=== PATIENT | male | born 1955 | race Caucasian/White ===

== ENCOUNTER 2016-07-17 17:05 | Observation (INO) | payer BC ==
[~2016-07-17] VITALS: Ht 180.3 cm; Wt 99.9 kg
[~2016-07-17 17:05] MED LIST: ADVIN25/60 INH; ASPEC81 PO; ATOR-24 PO; LSN20 PO; NRV/5 PO; NTRSLP4 SL; PLV75 PO; TPRSR25 PO
[2016-07-17] MEDS ORDERED: NITROGLYCERIN 0.4 MG SL PER TAB CHARGE SL PRN ×2 (17:30→19:15)
[2016-07-17 17:40] LABS: BASO % 0.2 %; BASO ABS # 0.01 K/uL (0-0.2); COMPLETE YES; EOS % 2.8 %; HEMATOCRIT 45.8 % (42-52); IG% 0.2 %; LYMPH % 21.5 %; LYMPH ABS # 1.39 K/uL (1.2-3.4); MEAN CELL VOLUME 87.6 fL (80-100); MEAN CORPUSCULAR HEMOGLOBIN 30.4 pg (25-34); MEAN CORPUSCULAR HGB CONC 34.7 g/dl (32-36); MEAN PLATELET VOLUME 10.9 fL (7.4-10.4); NEUT % 64.3 %; PLATELET COUNT 133 K/uL (130-400); RED BLOOD COUNT 5.23 M/uL (4.7-6.1); WHITE BLOOD COUNT 6.48 K/uL (4.8-10.8)
[2016-07-17 17:57] LABS: PARTIAL THROMBOPLASTIN RATIO 1.1; PROTHROMBIN TIME (PATIENT) 10.7 SECONDS (9.0-12.0)
--- NOTE | 2016-07-17 18:02 | DIAGNOSTIC IMAGING REPORT ---
CHEST ONE VIEW PORTABLE CLINICAL HISTORY: CHEST PAIN dyspnea COMPARISON STUDY: 05/09/2015 FINDINGS: The bones soft tissues and hemidiaphragms are normal. The cardiomediastinal silhouette is normal. The lungs are clear. The pulmonary vasculature is normal. IMPRESSION: Negative chest. Electronically signed by: Jone Biggs M.D. 07/17/2016 6:00 PM Dictated Date/Time: 07/17/2016 6:00 PM
[2016-07-17 18:15] LABS: ALT/SGPT 50 U/L (12-78); AST/SGOT 19 U/L (15-37); BLOOD UREA NITROGEN 14 mg/dl (7-18); BUN/CREATININE RATIO 13.1 (10-20); CALCIUM 8.4 mg/dl (8.5-10.1); CARBON DIOXIDE 28 mmol/L (21-32); CHLORIDE 108 mmol/L (98-107); GLUCOSE 93 mg/dl (70-99); POTASSIUM 4.2 mmol/L (3.5-5.1); SODIUM 140 mmol/L (136-145)
[2016-07-17 18:20] LABS: ALKALINE PHOSPHATASE 77 U/L (45-117)
[2016-07-17] MEDS ORDERED: ASPIRIN 81 MG CHEW PO STA ×2 (19:03)
[2016-07-17] MEDS ORDERED: POLYETHYLENE (MIRALAX) 17 GM PACK PO PRN (19:15)
[2016-07-17] MEDS ORDERED: ACETAMINOPHEN 325 MG TAB PO PRN (19:15)
[2016-07-17] MEDS ORDERED: ONDANSETRON INJ 2 MG/ML 2 ML VIAL IV PRN (19:15)
[2016-07-17] MEDS ORDERED: IV FLUIDS COMPLETED PRN (19:30)
--- NOTE | 2016-07-17 19:39 | EMERGENCY ROOM VISIT NOTE ---
History First contact with patient: 17:18 Chief Complaint: CHEST PAIN Stated Complaint: BACK PAIN,DISCOMFORT Nursing Triage Summary: Chest pain- under his shoulder tres is the same pain he had in May 2015 when he had a heart attack. Pain started today about noon. Was sitting in his office. History of Present Illness The patient is a 60 year old male who presents to the Emergency Room with complaints of left shoulder blade pain that started around noontime today at work. The patient is concerned because he reports that this pain is similar to when he had a heart attack last April. The patient underwent a single stent placement at that time. The patient is on aspirin, Plavix, Lipitor, lisinopril and metoprolol. He also has a prescription for nitroglycerin at home, but has not had to use it since his stent placement. He also did not take it today because he did not know how he would react with driving. The patient was sitting in his office when the pain developed. He denies any other recent strenuous activities, shortness of breath, cough or other upper respiratory symptoms. The pain is not worsened with deep breathing or movement of the neck or shoulder. He currently rates the pain a 3 out of 10. He denies any diaphoresis or nausea. Review of Systems HEENT: Denies dizziness, visual problems, hearing loss, tinnitus. Denies difficulty swallowing or oral lesions. PULMONARY: Denies cough, shortness of breath, sputum production or hemoptysis. CARDIOVASCULAR: Denies palpitations, dyspnea on exertion, orthopnea or peripheral edema. GASTROINTESTINAL: Denies diarrhea, constipation, nausea, vomiting, or abdominal pain. GENITOURINARY: Denies dysuria, frequency, urgency or nocturia. NEUROLOGIC: Denies history of epilepsy, CVA, TIA or chronic headaches. MUSCULOSKELETAL: Denies history of joint tenderness/swelling. SKIN: Denies rashes or lesions. PSYCHIATRIC: Denies history of depression or mental illness. ENDOCRINE: Denies history of diabetes or thyroid disorders. Past Medical/Surgical History Medical Problems: (1) Acute inferior myocardial infarction (2) Asthma (3) Chest pain, rule out acute myocardial infarction (4) Coronary artery disease (5) Dyslipidemia (6) Hypertension Family History Heart disease Social History Smoking Status: Never Smoker Alcohol Use: occasionally Marital Status: Housing Status: lives with family Occupation Status: employed Current/Historical Medications Scheduled Amlodipine Besylate (Amlodipine Besylate), 5 MG PO DAILY Aspirin (Aspirin EC Low Dose), 81 MG PO QAM Atorvastatin (Lipitor), 40 MG PO DAILY Clopidogrel Bisulfate (Clopidogrel), 75 MG PO QAM Fluticasone Prop/Salmeterol (Advair Diskus 250/50 60 Dose), 1 INHA INH DAILY Lisinopril (Lisinopril), 20 MG PO DAILY Metoprolol Succinate (Metoprolol Succinate ER), 25 MG PO QAM Scheduled PRN Nitroglycerin (Nitrostat), 0.4 MG SL UD PRN for Chest Pain Allergies Coded Allergies: Cat Dander (Unverified Allergy, Unknown, UNKNOWN, 07/17/16) Maple Tree (Unverified Allergy, Unknown, UNKNOWN, 07/17/16) Physical Exam Vital Signs Date Time Temp Pulse Resp B/P Pulse Ox O2 Delivery O2 Flow Rate FiO2 07/17/16 17:35 57 07/17/16 17:22 96 Room Air 07/17/16 17:07 36.7 58 20 167/97 100 Room Air Physical Exam CONSTITUTIONAL: Healthy and well nourished. Alert and oriented X 3 with positive affect. Patient does not appear in any acute distress on my exam. HEENT: Normocephalic, atraumatic. Pupils equal, round and reactive. Ears and nares are clear. No scleral icterus or conjunctival injection/pallor. NECK: Full active range of motion without discomfort. No JVD or carotid bruits. RESPIRATORY: Clear to auscultation bilaterally with no wheezing, crackles, rhonchi or stridor. Deep breathing does not cause any discomfort. CARDIOVASCULAR: Regular rate and rhythm with no murmurs, rubs or gallops. GASTROINTESTINAL: Bowel sounds present in all quadrants. Soft and nontender to palpation. Negative CVA tenderness. No hepatosplenomegaly. MUSCULOSKELETAL: Full range of motion of all joints without discomfort. The patient has no tenderness to palpation through the left scapular region, thoracolumbar spine or ribs. Scapular rotation does not cause any discomfort. INTEGUMENTARY: No rash or other significant dermatologic conditions noted. HEMATOLOGIC: No ecchymosis or petechiae. NEUROLOGIC: No focal neurologic deficits noted. Medical Decision & Procedures ER Provider Diagnostic Interpretation: My interpretation of an initial ECG shows a sinus bradycardia of [address] elevation or other conduction abnormalities. My interpretation of a portable chest x-ray does not show any consolidations, pneumothorax or cardiac prominence. Radiologist report is as follows: CHEST ONE VIEW PORTABLE CLINICAL HISTORY: CHEST PAIN dyspnea COMPARISON STUDY: 05/09/2015 FINDINGS: The bones soft tissues and hemidiaphragms are normal. The cardiomediastinal silhouette is normal. The lungs are clear. The pulmonary vasculature is normal. IMPRESSION: Negative chest. Laboratory Results 07/17/16 17:20 Red Blood Count 5.23, Mean Corpuscular Volume 87.6, Mean Corpuscular Hemoglobin 30.4, Mean Corpuscular Hemoglobin Concent 34.7, Mean Platelet Volume 10.9, Neutrophils (%) (Auto) 64.3, Lymphocytes (%) (Auto) 21.5, Monocytes (%) (Auto) 11.0, Eosinophils (%) (Auto) 2.8, Basophils (%) (Auto) 0.2, Neutrophils # (Auto ) 4.18, Lymphocytes # (Auto) 1.39, Monocytes # (Auto) 0.71, Eosinophils # (Auto ) 0.18, Basophils # (Auto) 0.01 07/17/16 17:20 Test 07/17/16 17:20 White Blood Count 6.48 K/uL (4.8-10.8) Red Blood Count 5.23 M/uL (4.7-6.1) Hemoglobin 15.9 g/dL (14.0-18.0) Hematocrit 45.8 % (42-52) Mean Corpuscular Volume 87.6 fL (80-100) Mean Corpuscular Hemoglobin 30.4 pg (25-34) Mean Corpuscular Hemoglobin Concent 34.7 g/dl (32-36) Platelet Count 133 K/uL (130-400) Mean Platelet Volume 10.9 fL (7.4-10.4) Neutrophils (%) (Auto) 64.3 % Lymphocytes (%) (Auto) 21.5 % Monocytes (%) (Auto) 11.0 % Eosinophils (%) (Auto) 2.8 % Basophils (%) (Auto) 0.2 % Neutrophils # (Auto) 4.18 K/uL (1.4-6.5) Lymphocytes # (Auto) 1.39 K/uL (1.2-3.4) Monocytes # (Auto) 0.71 K/uL (0.11-0.59) Eosinophils # (Auto) 0.18 K/uL (0-0.5) Basophils # (Auto) 0.01 K/uL (0-0.2) RDW Standard Deviation 39.1 fL (36.4-46.3) RDW Coefficient of Variation 12.2 % (11.5-14.5) Immature Granulocyte % (Auto) 0.2 % Immature Granulocyte # (Auto) 0.01 K/uL (0.00-0.02) Prothrombin Time 10.7 SECONDS (9.0-12.0) Prothromb Time International Ratio 1.0 (0.9-1.1) Activated Partial Thromboplast Time 29.2 SECONDS (21.0-31.0) Partial Thromboplastin Ratio 1.1 D-Dimer < 190 ug/L FEU (0-500) Anion Gap 4.0 mmol/L (3-11) Est Creatinine Clear Calc Drug Dose 89.2 ml/min Estimated GFR () 85.3 Estimated GFR (Non- 73.6 BUN/Creatinine Ratio 13.1 (10-20) Calcium Level 8.4 mg/dl (8.5-10.1) Total Bilirubin 0.9 mg/dl (0.2-1) Direct Bilirubin 0.2 mg/dl (0-0.2) Aspartate Amino Transf (AST/SGOT) 19 U/L (15-37) Alanine Aminotransferase (ALT/SGPT) 50 U/L (12-78) Alkaline Phosphatase 77 U/L (45-117) Total Creatine Kinase 103 U/L (39-308) Creatine Kinase MB 1.0 ng/ml (0.5-3.6) Creatine Kinase MB Ratio 1.0 (0-3.0) Troponin I < 0.015 ng/ml (0-0.045) Total Protein 7.2 gm/dl (6.4-8.2) Albumin 4.2 gm/dl (3.4-5.0) Lipase 119 U/L (73-393) The above labs were reviewed. Medications Administered Medications (Trade) Dose Ordered Sig/Sharonda Route Start Time Stop Time Status Last Admin Dose Admin Aspirin (Aspirin Chew) 283 mg ONE STAT PO 07/17/16 19:03 07/17/16 19:05 DC 07/17/16 19:29 283 MG ED Course Patient history and physical exam were performed. Nurse's notes were reviewed. Review of vital signs shows an elevated blood pressure 167/97. O2 saturation is 100% on room air. The patient's heart rate in triage was 58. Initial ECG showed a sinus bradycardia without any additional concerning findings such as ST elevation or conduction abnormalities. IV access was established, and labs were drawn. Nitroglycerin sublingual protocol was initiated. In the meantime, and portable chest x-ray was performed and was normal. After the patient's initial nitroglycerin administration, he did report a notable reduction of his pain. With administration of a second nitroglycerin, the pain was reduced to a "barely discernible" discomfort. Review of labs shows a normal troponin and d- dimer. Electrolytes and CBC are also normal. The case was also discussed with Dr. Moreno, ED attending physician, who agreed with hospitalist consultation. Dr. Laureano, [facility] hospitalist was consulted. Please see his dictation for further treatment and final disposition. The patient was administered an additional aspirin 243 mg as he took an aspirin 81 mg this morning. Medical Decision The patient presents with complaint of chest pain today. The patient has a history of anterior wall ST elevation OK status post stent in the distal RCA. Although his initial workup shows normal cardiac isoenzymes, d-dimer or an ECG, I do feel that the patient warrants further cardiac rule out and stress echo. The patient did have notable relief of his discomfort with sublingual nitroglycerin administration. Workup today is not suggestive of pneumothorax or pneumonia. Impression Primary Impression: Left sided chest pain Additional Impression: History of acute myocardial infarction of anterior wall Departure Information Referrals Thi Mcgregor D.O. (PCP) Patient Instructions My [facility] Problem Qualifiers
--- NOTE | 2016-07-17 19:54 | History and Physical ---
History & Physical Date & Time of Service: July 17, 2016 at 19:36 Chief Complaint: Back Pain,Discomfort Primary Care Physician: Thi Mcgregor D.O. History of Present Illness Source: patient, hospital records Mr Poole is a 60 year old male with Hx STEMI 1 year previously requiring a emergent PCI to 99% occluded RCA. He presents to the ER with a similar pain but less severe than his heart attack the previous year. He started to have a dull ache behind left shoulder around noon at work while sitting at his desk in front of a computer. Severity 3-4/10 when it came on, now 1-1.5/10 after nitroglycerin given. He denies any nausea or diaphoresis. Pain lasted 4-5 hours until nitroglycerin given in ER. Nothing but the nitro made it better or worse. Not exertional, non positional. On the last occasion he let the pain go on for three days before seeking medical attention so decided to come in sooner this time. He has not had any problems since the cardiac stent and is compliant with his medications. He does note he did have a lot of sleep the previous night. He denies claudication, PND, orthopnea or palpitations. Past Medical/Surgical History Medical Problems: (1) Asthma Status: Chronic (2) Hypertension Status: Chronic (3) STEMI treated with cardiac stent to Status: Chronic (4) Hx one occurrence of sarcoidosis Family History Heart disease Social History Smoking Status: Former Smoker (occasional cigars (1-2 times/year) quit 4-5 years ago) Smokeless Tobacco Use: No Alcohol Use: socially (social, 2-3 beers once/week) Drug Use: none Marital Status: Housing status: lives with family Occupational Status: employed Allergies Coded Allergies: Cat Dander (Unverified Allergy, Unknown, UNKNOWN, 07/17/16) Maple Tree (Unverified Allergy, Unknown, UNKNOWN, 07/17/16) Home Medications Scheduled Amlodipine Besylate (Amlodipine Besylate), 5 MG PO DAILY Aspirin (Aspirin EC Low Dose), 81 MG PO QAM Atorvastatin (Lipitor), 40 MG PO DAILY Clopidogrel Bisulfate (Clopidogrel), 75 MG PO QAM Fluticasone Prop/Salmeterol (Advair Diskus 250/50 60 Dose), 1 INHA INH DAILY Lisinopril (Lisinopril), 20 MG PO DAILY Metoprolol Succinate (Metoprolol Succinate ER), 25 MG PO QAM Scheduled PRN Nitroglycerin (Nitrostat), 0.4 MG SL UD PRN for Chest Pain Review of Systems Constitutional: No chills, No fever Eyes: No worsening of vision ENT: No hearing loss Respiratory: No cough, No dyspnea on exertion, No shortness of breath, No sputum, No wheezing Cardiovascular: No PND, No chest pain, No claudication, No edema, No orthopnea , No palpitations Abdomen: No GI bleeding, No constipation, No diarrhea, No nausea, No pain, No vomiting Musculoskeletal: No joint pain, No muscle pain Genitourinary - Male: No dysuria, No hematuria, No urinary frequency Neurologic: + numbness/tingling (in all finger tips) Hematologic / Lymphatic: No abnormal bleeding/bruising Integumentary: No itch, No rash Physical Exam Vital Signs Date Time Temp Pulse Resp B/P Pulse Ox O2 Delivery O2 Flow Rate FiO2 07/17/16 17:35 57 07/17/16 17:22 96 Room Air 07/17/16 17:07 36.7 58 20 167/97 100 Room Air General Appearance: WD/WN, no apparent distress Head: normocephalic, atraumatic Eyes: normal inspection, PERRL, EOMI ENT: normal ENT inspection Neck: supple, no JVD, trachea midline Respiratory/Chest: chest non-tender, lungs clear, normal breath sounds, no respiratory distress, no accessory muscle use Cardiovascular: regular rate, rhythm, no edema, no murmur, normal peripheral pulses Abdomen/GI: normal bowel sounds, non tender, soft Back: no CVA tenderness Extremities/Musculoskelatal: no calf tenderness, normal capillary refill, no pedal edema Neurologic/Psych: bulk receiver II-XII nml as tested (no facial droop), no motor/sensory deficits (grossly), alert, normal mood/affect, oriented x 3 Skin: normal color, warm/dry, no rash Diagnostics Laboratory Results Results Past 24 Hours Test 07/17/16 17:20 Range/Units White Blood Count 6.48 4.8-10.8 K/uL Red Blood Count 5.23 4.7-6.1 M/uL Hemoglobin 15.9 14.0-18.0 g/dL Hematocrit 45.8 42-52 % Mean Corpuscular Volume 87.6 80-100 fL Mean Corpuscular Hemoglobin 30.4 25-34 pg Mean Corpuscular Hemoglobin Concent 34.7 32-36 g/dl Platelet Count 133 130-400 K/uL Mean Platelet Volume 10.9 7.4-10.4 fL Neutrophils (%) (Auto) 64.3 % Lymphocytes (%) (Auto) 21.5 % Monocytes (%) (Auto) 11.0 % Eosinophils (%) (Auto) 2.8 % Basophils (%) (Auto) 0.2 % Neutrophils # (Auto) 4.18 1.4-6.5 K/uL Lymphocytes # (Auto) 1.39 1.2-3.4 K/uL Monocytes # (Auto) 0.71 0.11-0.59 K/uL Eosinophils # (Auto) 0.18 0-0.5 K/uL Basophils # (Auto) 0.01 0-0.2 K/uL RDW Standard Deviation 39.1 36.4-46.3 fL RDW Coefficient of Variation 12.2 11.5-14.5 % Immature Granulocyte % (Auto) 0.2 % Immature Granulocyte # (Auto) 0.01 0.00-0.02 K/uL Prothrombin Time 10.7 9.0-12.0 SECONDS Prothromb Time International Ratio 1.0 0.9-1.1 Activated Partial Thromboplast Time 29.2 21.0-31.0 SECONDS Partial Thromboplastin Ratio 1.1 D-Dimer < 190 0-500 ug/L FEU Sodium Level 140 136-145 mmol/L Potassium Level 4.2 3.5-5.1 mmol/L Chloride Level 108 98-107 mmol/L Carbon Dioxide Level 28 21-32 mmol/L Anion Gap 4.0 3-11 mmol/L Blood Urea Nitrogen 14 7-18 mg/dl Creatinine 1.10 0.60-1.40 mg/dl Est Creatinine Clear Calc Drug Dose 89.2 ml/min Estimated GFR () 85.3 Estimated GFR (Non- 73.6 BUN/Creatinine Ratio 13.1 10-20 Random Glucose 93 70-99 mg/dl Calcium Level 8.4 8.5-10.1 mg/dl Total Bilirubin 0.9 0.2-1 mg/dl Direct Bilirubin 0.2 0-0.2 mg/dl Aspartate Amino Transf (AST/SGOT) 19 15-37 U/L Alanine Aminotransferase (ALT/SGPT) 50 12-78 U/L Alkaline Phosphatase 77 45-117 U/L Total Creatine Kinase 103 39-308 U/L Creatine Kinase MB 1.0 0.5-3.6 ng/ml Creatine Kinase MB Ratio 1.0 0-3.0 Troponin I < 0.015 0-0.045 ng/ml Total Protein 7.2 6.4-8.2 gm/dl Albumin 4.2 3.4-5.0 gm/dl Lipase 119 73-393 U/L Diagnostic Radiology CHEST ONE VIEW PORTABLE CLINICAL HISTORY: CHEST PAIN dyspnea COMPARISON STUDY: 05/09/2015 FINDINGS: The bones soft tissues and hemidiaphragms are normal. The cardiomediastinal silhouette is normal. The lungs are clear. The pulmonary vasculature is normal. IMPRESSION: Negative chest. Electronically signed by: Jone Biggs M.D. 07/17/2016 6:00 PM Dictated Date/Time: 07/17/2016 6:00 PM EKG Sinus bradycardia T wave inversion less evident in Inferior leads than previous EKG Impression Assessment and Plan 60 year old male with Hx STEMI last year and feels his current shoulder pain is similar to this previous episode Shoulder pain Rule out OR - CXR negative for infection and no widening of mediastinum to suggest aneurysm/ dissection (patient appears well and non toxic in addition) - serial trops - EKG in morning - Cardiology consult to consider stress test or cath if troponins negative - Start low dose heparin drip with bolus, ASA given, nitro s/l given to reduce pain to 0/10 Coronary artery disease - continue ASA, Plavix, BB, ACEi Hypertension - Continue BB and ACEi, hold amlodipine due to low BP and potential need for nitro drip VTE Prophylaxis - on heparin infusion Code - Full Disposition - observation status to telemetry as chest pain rule out OR Level of Care Telemetry Advanced Directives Existing Advance Directive: No Existing Living Will: No Existing Power of Constitutional Law Professor: No Resuscitation Status FULL RESUSCITATION VTE Prophylaxis VTE Risk Assessment Done? Y/N: Yes Risk Level: Low Additional Copies To Thi Mcgregor D.O. Resident Tracking Resident Involvement: Resident Care Provided Care Provided: Adult [facility] Medicine Assessment and Plan Attending Addendum: I have physically seen and examined this patient, have directed their medical care, have supervised the medical residents activities, and agree with the H&P as noted above, with the following changes: NONE
[2016-07-17] MEDS ORDERED: HEPARIN IV BOLUS 4,000 UNIT in SYRINGE 0 ML IV STA (20:59)
[2016-07-17 21:00] VITALS: BP 125/83; TEMP 36.7; O2SAT 96
[2016-07-17] MEDS: HEPARIN 25,000 UNIT/500ML D5W 500 ML IV PRN (21:11)
[2016-07-17 21:52] VITALS: BP 130/88; PULSE 51; TEMP 36.6; O2SAT 98; Ht 180.3 cm; Wt 99.9 kg
[2016-07-17] MEDS ORDERED: MoRPHine SULFATE 2 MG/ML CARP IV STA (22:22)
[2016-07-17 22:30] VITALS: BP 124/72; PULSE 49
[2016-07-17] MEDS ORDERED: MoRPHine SULFATE 2 MG/ML CARP ONE (22:35)
[2016-07-17 22:41] VITALS: BP 132/75; PULSE 56
[2016-07-17 23:31] VITALS: BP 122/74; PULSE 50; TEMP 36.5; O2SAT 96
[2016-07-18] VITALS: O2SAT 98
[2016-07-18] MEDS: NITROGLYCERIN OINT 2% 1GM PACKET EXT SCH ×2 (02:14→09:24)
[2016-07-18 04:14] VITALS: BP 105/65; PULSE 52; TEMP 36.5; O2SAT 93
[2016-07-18 04:34] LABS: COMPLETE YES; EOS % 4.1 %; HEMATOCRIT 42.5 % (42-52); IG% 0.4 %; LYMPH % 25.1 %; LYMPH ABS # 1.42 K/uL (1.2-3.4); MEAN CELL VOLUME 87.8 fL (80-100); MEAN CORPUSCULAR HGB CONC 35.3 g/dl (32-36); MEAN PLATELET VOLUME 11.3 fL (7.4-10.4); MONO % 10.4 %; PLATELET COUNT 116 K/uL (130-400); RED BLOOD COUNT 4.84 M/uL (4.7-6.1); WHITE BLOOD COUNT 5.65 K/uL (4.8-10.8)
[2016-07-18 04:47] LABS: PARTIAL THROMBOPLASTIN RATIO 1.6
[2016-07-18 04:54] LABS: ALT/SGPT 42 U/L (12-78); AST/SGOT 15 U/L (15-37); BLOOD UREA NITROGEN 13 mg/dl (7-18); BUN/CREATININE RATIO 12.3 (10-20); CALCIUM 7.9 mg/dl (8.5-10.1); CARBON DIOXIDE 25 mmol/L (21-32); CHLORIDE 110 mmol/L (98-107); GLUCOSE 93 mg/dl (70-99); POTASSIUM 4.4 mmol/L (3.5-5.1); SODIUM 141 mmol/L (136-145)
[2016-07-18 04:59] LABS: ALB/GLOB RATIO 1.4 (0.9-2); ALKALINE PHOSPHATASE 68 U/L (45-117); CHOLESTEROL 108 mg/dl (0-200); CHOLESTEROL/HDL RATIO 3.6; HDL CHOLESTEROL 30 mg/dl; LDL CHOLESTEROL CALCULATED 59 mg/dl; TRIGLYCERIDES 95 mg/dl (0-150); VERY LOW DENSITY LIPOPROT CALC 19 mg/dl
[2016-07-18] MEDS ORDERED: HEPARIN IV BOLUS 4,500 UNIT in SYRINGE 0 ML IV STA (05:43)
[2016-07-18] MEDS: HEPARIN 25,000 UNIT/500ML D5W 500 ML IV PRN (05:48)
[2016-07-18 05:56] LABS: ESTIMATED AVERAGE GLUCOSE 105 mg/dl; HA1C FLAG Normal (Normal)
--- NOTE | 2016-07-18 07:14 | Family Medicine Progress Note ---
Progress Note Date of Service July 18, 2016. Subjective Pt evaluation today including: conversation w/ patient, physical exam, chart review, lab review Objective Vital Signs Date Time Temp Pulse Resp B/P Pulse Ox O2 Delivery O2 Flow Rate FiO2 07/18/16 04:14 36.5 52 18 105/65 93 Room Air 07/18/16 04:00 Room Air 07/18/16 00:00 98 Room Air 07/17/16 23:31 36.5 50 18 122/74 96 Room Air 07/17/16 22:41 56 132/75 07/17/16 22:30 49 124/72 07/17/16 21:52 36.6 51 16 130/88 98 Room Air 07/17/16 21:00 36.7 18 125/83 96 Room Air 07/17/16 20:42 88 18 125/83 96 07/17/16 17:35 57 07/17/16 17:22 96 Room Air 07/17/16 17:07 36.7 58 20 167/97 100 Room Air Resident Tracking Resident Involvement: Resident Care Provided Care Provided: Adult Hospital Medicine
[2016-07-18 07:56] VITALS: BP 120/74; PULSE 48; TEMP 36.9; O2SAT 94
[2016-07-18] MEDS ORDERED: ATORVASTATIN 40 MG TAB PO SCH (09:00)
[2016-07-18] MEDS ORDERED: FLUTICASONE/SALMETEROL 250/50 (ADVAIR) 14 PUFF/1 INHALER INH SCH ×2 (09:00)
[2016-07-18] MEDS ORDERED: AMLODIPINE BESYLATE 5 MG TAB PO SCH (09:00)
[2016-07-18] MEDS ORDERED: CLOPIDOGREL BISULFATE 75 MG TAB PO SCH (09:00)
[2016-07-18] MEDS ORDERED: ASPIRIN 81 MG ECTAB PO SCH (09:00)
[2016-07-18] MEDS ORDERED: METOPROLOL SUCC 25MG EXT REL TAB PO SCH (09:00)
[2016-07-18] MEDS ORDERED: LISINOPRIL 20 MG TAB PO SCH (09:00)
--- NOTE | 2016-07-18 11:05 | CARDIOLOGY CONSULTATION ---
DATE OF CONSULTATION: 07/18/2016 REFERRING PHYSICIAN: Stephane Louie MD. CHIEF COMPLAINT: Chest pain. HISTORY OF PRESENT ILLNESS: Mr. Min Poole is a 60-year-old gentleman with a history of coronary artery disease having suffered an inferior myocardial infarction in May of 2015. The index symptom at that time was significant chest and back discomfort. The patient experienced symptoms of back discomfort yesterday while at work. He stated that while at rest working at his desk, he began to experience some evidence of discomfort close to the left scapula. This eventually increased in severity and was persistent in nature. This symptom itself was reminiscent of his myocardial infarction with the exception that it did not involve any actual anterior chest discomfort. There was no associated dyspnea. There was no diaphoresis. There was no associated nausea. The pain itself was persistent and did not change with movement of the arm or back. Activities did not appear to change the symptom. The patient's symptoms lasted approximately 4-5 hours prior to seeking medical attention. When he arrived at [facility], he was administered nitroglycerin on 3 occasions without any significant improvement in his symptoms. Eventually, the patient was administered some narcotics with resolution of the back discomfort. Currently, the patient is not having back pain. His current symptom is simply tiredness due to poor sleep last night. In general, the patient is an active individual who is accustomed to moving a lawn and routine physical activity. He generally does not experience symptoms of limiting dyspnea and he experiences no symptoms of chest discomfort or back pain with these activities. He has not had any dizziness or lightheadedness recently. He has not suffered a syncopal episode. He denies any symptoms of palpitations or rapid heartbeats. He denies any swelling in his lower extremities. He sleeps poorly and awakens frequently at night for reasons that are not clear to him. This is not orthopnea and he has no paroxysmal nocturnal dyspnea. He has been under more stress lately and working long hours and claims to be more fatigued as a result. He also claims to be under more stress recently. PAST MEDICAL HISTORY: Significant for: 1. The aforementioned coronary artery disease. The patient had an acute myocardial infarction on 05/09/2015, which involved occlusion of the distal right coronary artery. The patient underwent 3 x 15 mm Resolute drug-eluting stent placement at that time. Coronary angiography revealed a 30% proximal LAD stenosis and 40% ostial proximal LAD diagonal stenosis and mild atherosclerotic disease in the left circumflex distribution. 2. Preserved left ventricular systolic function with subtle inferior wall motion abnormality. 3. Asthma, well controlled with Advair. 4. Hypertension. 5. Erectile dysfunction. PAST SURGICAL HISTORY: None. FAMILY HISTORY: Significant for premature coronary disease. 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 He is a lifelong nonsmoker with the exception of a rare cigar. He denies significant alcohol use. OUTPATIENT MEDICATIONS: Include, Advair, amlodipine, aspirin, atorvastatin, clopidogrel, lisinopril, metoprolol and Levitra. MEDICAL ALLERGIES: None. REVIEW OF SYSTEMS: A complete 10-system review of systems was performed and the pertinent positives are noted in the history of present illness. The patient claims to be eating well lately. He denies change in his appetite. There are no constitutional symptoms recently such as fevers or chills. No viral illnesses. The remainder of the review of systems was normal. PHYSICAL EXAMINATION: GENERAL: The patient does not appear to be in acute distress. He is a pleasant individual who is alert and oriented. His mood and affect appear normal. He answered all questions appropriately. CURRENT VITAL SIGNS: Include blood pressure 105/65 with pulse of 52. HEENT: His sclerae are anicteric. His pupils are equal and reactive to light and accommodation. Extraocular movements were intact. NECK: Palpation of the submandibular region did not reveal any significant lymphadenopathy. The carotids are palpable bilaterally. There are no bruits on auscultation. I do not appreciate any jugular venous distention. The thyroid is not enlarged. LUNGS: Auscultation of both lung smith reveal them to be clear. There were no rales, wheezes or rhonchi. He had normal respiratory effort without use of accessory muscles. Palpation of the back did not reproduce the symptoms described. CARDIOVASCULAR: Revealed him to be in a regular rhythm. S1, S2 appear to be normal. I did not appreciate any murmurs on exam. PMI was not markedly displaced on palpation. ABDOMEN: Soft and nontender. EXTREMITIES: Evaluation of both wrists revealed radial pulses that were equal in intensity. There was no evidence of cyanosis or clubbing. Evaluation of lower extremities did not reveal any significant peripheral edema. There were no rashes appreciated on examination today. LABORATORY STUDIES: Obtained includes a white cell count of 5.6, hemoglobin of 15, platelet count of 116. Sodium is 141, potassium is 4.4, BUN was 13, creatinine was 1.1. Serial cardiac biomarkers were all less than detectable limit. LDL was 59. Serial 12-lead EKGs were obtained since admission, this did reveal him to be in a sinus rhythm with evidence of old inferior myocardial infarction, but no acute ST or T-wave changes. A single view chest x-ray was also obtained at the time of admission which did not reveal any mediastinal widening or any acute findings. This was a normal chest x-ray. Echocardiogram has been maintained on an outpatient basis on 05/10/2015. This revealed the patient to have preserved left ventricular systolic function with very mild basal to mid inferior hypokinesis. There was mild dilation of the left atrium. There was no significant valvular heart disease. ASSESSMENT AND PLAN: 1. Chest pain: Given the extended duration of his symptoms and the absence of an elevation in the cardiac biomarkers, this was not likely cardiac in nature. However, he does have a strong history of heart disease and there was some concern regarding instability of his coronary artery disease. It would seem reasonable at this point to perform noninvasive testing given his relatively normal EKG and history of preserved left ventricular systolic function. I think a stress echocardiogram would be most appropriate. The patient is currently pain free. 2. Coronary artery disease. The patient is on an aggressive regimen for secondary prevention to include dual antiplatelet therapy, beta blockade and high dose atorvastatin. This should be continued.
[2016-07-18 11:41] VITALS: BP 114/82; PULSE 64; TEMP 36.7; O2SAT 93
--- NOTE | 2016-07-18 11:59 | Discharge Instructions ---
Discharge Instructions Date of Service July 18, 2016. Admission Reason for Admission: Chest Pain, Rule Out Acute Myocardial Infarction Discharge Discharge Diagnosis / Problem: chest pain - likely musculoskeletal Discharge Goals Goal(s): Diagnostic testing Activity Recommendations Activity Limitations: resume your previous activity . Current Hospital Diet Patient's current hospital diet: AHA Diet (Heart Healthy) Discharge Diet Recommended Diet: AHA Diet (Heart Healthy) Pending Studies Studies pending at discharge: no Laboratory Results Hemoglobin A1c Test 07/18/16 04:10 Range/Units Estimated Average Glucose 105 mg/dl Hemoglobin A1c 5.3 4.5-5.6 % Lipid Panel Test 07/18/16 04:10 Range/Units Triglycerides Level 95 0-150 mg/dl Cholesterol Level 108 0-200 mg/dl HDL Cholesterol 30 mg/dl Cholesterol/HDL Ratio 3.6 LDL Cholesterol, Calculated 59 mg/dl Medical Emergencies . Who to Call and When: Medical Emergencies: If at any time you feel your situation is an emergency, please call 911 immediately. . Non-Emergent Contact Non-Emergency issues call your: Primary Care Provider, Family Manager . . "Provider Documentation" section prepared by Phi Clark. . VTE Core Measure Inpt VTE Proph given/why not?: Other Anticoagulation (heparin drip IV)
[2016-07-18] MEDS ORDERED: NITROGLYCERIN 2% OINTMENT 30GM TUBE EXT SCH (12:00)
[2016-07-18 12:37] LABS: PARTIAL THROMBOPLASTIN RATIO 1.1
[2016-07-18 12:39] VITALS: BP 114/82; PULSE 64; TEMP 36.7; O2SAT 93
--- NOTE | 2016-07-18 14:30 | EXERCISE STRESS ECHO ---
*NOTICE TO RECEIVING LIBERTARIAN AGENCY This information is strictly Confidential and protected under [place] law. [place] law prohibits you from making any further disclosure of this information unless further disclosure is expressly permitted by the written consent of the person to whom it pertains or is authorized by law. A general authorization for the release of medical or other information is not sufficient for this purpose. Hospital accepts no responsibility if the information is made available to any other person, INCLUDING THE PATIENT. Interpretation Summary * Name: RONALD FITCH Study Date: 07/18/2016 09:26 AM BP: 108/73 mmHg * Patient Location: C.2T\S\S238\S\2 HR: 49 * : 1955 (M/d/yyyy) Gender: Male Height: 71 in * Age: 60 yrs Ethnicity: CA Weight: 220 lb * Ordering Physician: Dago Yee * Referring Physician: Self, Referred * Performed By: Neida Vincent RCS * * Reason For Study: CHEST PAIN * BSA: 2.2 m2 * -- Conclusions -- * Normal maximal exercise echocardiogram without symptoms or evidence of inducible ischemia Procedure Details * ECHOEX, CPT #48089 Left Ventricular Findings with Stress * Normal maximal exercise echocardiogram without symptoms or evidence of inducible ischemia Stress Parameters * Normal baseline electrocardiogram. * Stress ECG: No ST changes. No arrhythmias. * The stress portion of this study was personally supervised by the undersigned interpreting physician. * Rest heart rate was '49' BPM. * Rest blood pressure was '108/73' * Maximum heart rate achieved was 139 bpm. * Maximum heart rate was 85 % of maximum age-predicted heart rate. * Maximum blood pressure was '188/78' * Total exercise time was '11:30' * Maximum exercise MET level achieved was '13.40' METS * Maximum treadmill speed was '4.20' miles per hour. * Maximum treadmill elevation was '16.00'% grade. Left Ventricular Findings with Stress * Normal baseline LV function without wall motion abnormalities Normal augmentation with exercise without development of wall motin abnormalities. No EKG changes Blunted heart rate response to exercise. Normal BP response to exercise No symptoms reported Lizama treadmill score: 11 (low risk)
--- NOTE | 2016-07-18 16:35 | Discharge Summary ---
Discharge Summary Date of Service July 18, 2016. Discharge Summary Admission Date: July 17, 2016 at 19:06 Discharge Date: July 18, 2016 Discharge Disposition: Home Principal Diagnosis: chest pain likely muscular Procedures: stress echo: Interpretation Summary * Name: RONALD FITCH Study Date: 07/18/2016 09:26 AM BP: 108/73 mmHg * Patient Location: [facility]\S\[facility]\S\2 HR: 49 * : 1955 (M/d/yyyy) Gender: Male Height: 71 in * Age: 60 yrs Ethnicity: [place] Weight: 220 lb * Ordering Physician: Dago eYe * Referring Physician: Self, Referred * Performed By: Neida Vicnent RCS * * Reason For Study: CHEST PAIN * BSA: 2.2 m2 * -- Conclusions -- * Normal maximal exercise echocardiogram without symptoms or evidence of inducible ischemia Procedure Details * ECHOEX, CPT #30940 Left Ventricular Findings with Stress * Normal maximal exercise echocardiogram without symptoms or evidence of inducible ischemia Stress Parameters * Normal baseline electrocardiogram. * Stress ECG: No ST changes. No arrhythmias. * The stress portion of this study was personally supervised by the undersigned interpreting physician. * Rest heart rate was '49' BPM. * Rest blood pressure was '108/73' * Maximum heart rate achieved was 139 bpm. * Maximum heart rate was 85 % of maximum age-predicted heart rate. * Maximum blood pressure was '188/78' * Total exercise time was '11:30' * Maximum exercise MET level achieved was '13.40' METS * Maximum treadmill speed was '4.20' miles per hour. * Maximum treadmill elevation was '16.00'% grade. Left Ventricular Findings with Stress * Normal baseline LV function without wall motion abnormalities Normal augmentation with exercise without development of wall motin abnormalities. No EKG changes Blunted heart rate response to exercise. Normal BP response to exercise No symptoms reported Lizama treadmill score: 11 (low risk) MTH0 0 MTF0 0 Last 24 Hours Test 07/17/16 17:20 07/18/16 01:55 07/18/16 04:10 07/18/16 12:11 White Blood Count 6.48 K/uL 5.65 K/uL Red Blood Count 5.23 M/uL 4.84 M/uL Hemoglobin 15.9 g/dL 15.0 g/dL Hematocrit 45.8 % 42.5 % Mean Corpuscular Volume 87.6 fL 87.8 fL Mean Corpuscular Hemoglobin 30.4 pg 31.0 pg Mean Corpuscular Hemoglobin Concent 34.7 g/dl 35.3 g/dl Platelet Count 133 K/uL 116 K/uL Mean Platelet Volume 10.9 fL 11.3 fL Neutrophils (%) (Auto) 64.3 % 60.0 % Lymphocytes (%) (Auto) 21.5 % 25.1 % Monocytes (%) (Auto) 11.0 % 10.4 % Eosinophils (%) (Auto) 2.8 % 4.1 % Basophils (%) (Auto) 0.2 % 0.0 % Neutrophils # (Auto) 4.18 K/uL 3.39 K/uL Lymphocytes # (Auto) 1.39 K/uL 1.42 K/uL Monocytes # (Auto) 0.71 K/uL 0.59 K/uL Eosinophils # (Auto) 0.18 K/uL 0.23 K/uL Basophils # (Auto) 0.01 K/uL 0.00 K/uL RDW Standard Deviation 39.1 fL 39.7 fL RDW Coefficient of Variation 12.2 % 12.3 % Immature Granulocyte % (Auto) 0.2 % 0.4 % Immature Granulocyte # (Auto) 0.01 K/uL 0.02 K/uL Prothrombin Time 10.7 SECONDS Prothromb Time International Ratio 1.0 Activated Partial Thromboplast Time 29.2 SECONDS 40.8 SECONDS 29.4 SECONDS Partial Thromboplastin Ratio 1.1 1.6 1.1 D-Dimer < 190 ug/L FEU Sodium Level 140 mmol/L 141 mmol/L Potassium Level 4.2 mmol/L 4.4 mmol/L Chloride Level 108 mmol/L 110 mmol/L Carbon Dioxide Level 28 mmol/L 25 mmol/L Anion Gap 4.0 mmol/L 6.0 mmol/L Blood Urea Nitrogen 14 mg/dl 13 mg/dl Creatinine 1.10 mg/dl 1.10 mg/dl Est Creatinine Clear Calc Drug Dose 89.2 ml/min 89.5 ml/min Estimated GFR () 85.3 85.3 Estimated GFR (Non- 73.6 73.6 BUN/Creatinine Ratio 13.1 12.3 Random Glucose 93 mg/dl 93 mg/dl Calcium Level 8.4 mg/dl 7.9 mg/dl Total Bilirubin 0.9 mg/dl 0.8 mg/dl Direct Bilirubin 0.2 mg/dl Aspartate Amino Transf (AST/SGOT) 19 U/L 15 U/L Alanine Aminotransferase (ALT/SGPT) 50 U/L 42 U/L Alkaline Phosphatase 77 U/L 68 U/L Total Creatine Kinase 103 U/L Creatine Kinase MB 1.0 ng/ml Creatine Kinase MB Ratio 1.0 Troponin I < 0.015 ng/ml < 0.015 ng/ml < 0.015 ng/ml Total Protein 7.2 gm/dl 6.2 gm/dl Albumin 4.2 gm/dl 3.6 gm/dl Lipase 119 U/L Estimated Average Glucose 105 mg/dl Hemoglobin A1c 5.3 % Globulin 2.6 gm/dl Albumin/Globulin Ratio 1.4 Triglycerides Level 95 mg/dl Cholesterol Level 108 mg/dl HDL Cholesterol 30 mg/dl LDL Cholesterol, Calculated 59 mg/dl VLDL Cholesterol, Calculated 19 mg/dl Cholesterol/HDL Ratio 3.6 Consultations: cardiology Medication Reconciliation Continued Medications: Amlodipine Besylate (Amlodipine Besylate) 5 Mg Tab 5 MG PO DAILY, #90 Aspirin (Aspirin EC Low Dose) 81 Mg Ectab 81 MG PO QAM for 30 Days, #30 Atorvastatin (Lipitor) 40 Mg Tab 40 MG PO DAILY, TAB Clopidogrel Bisulfate (Clopidogrel) 75 Mg Tab 75 MG PO QAM for 30 Days, #30 TAB 1 Refill Fluticasone Prop/Salmeterol (Advair Diskus 250/50 60 Dose) 1 Ea Aerp 1 INHA INH DAILY, #180 Lisinopril (Lisinopril) 20 Mg Tab 20 MG PO DAILY, #90 Metoprolol Succinate (Metoprolol Succinate ER) 25 Mg Tabcr 25 MG PO QAM for 30 Days, #30 TABS 1 Refill Nitroglycerin (Nitrostat) 0.4 Mg/1 Tab Subl 0.4 MG SL UD PRN for Chest Pain for 30 Days, #25 1 Refill Hospital Course admitted due to sudden (at rest) onset of chest pain - felt a lot like what he remembered as his angina - came to ER. w/u negative but with known CAD and sx feeling like his angina - consulted cardiology for ?stress vs cath ---> felt stress most appropriate - stress test negative stable for home. f/u PCP no med changes at this time w periscapular pain now resolved - most likely MSK far more likely than occult GI given no other GI sx. stable for home Total Time Spent: Less than 30 minutes This includes examination of the patient, discharge planning, medication reconciliation, and communication with other providers. Discharge Instructions Please refer to the electronic Patient Visit Report (Discharge Instructions) for additional information. Additional Copies To Thi Mcgregor D.O.; Dayday Duarte M.D.
--- NOTE | 2016-07-18 22:31 | Discharge Summary ---
Discharge Summary Date of Service July 18, 2016. Discharge Summary Admission Date: July 17, 2016 at 19:06 Discharge Date: July 18, 2016 Hospital Course This includes examination of the patient, discharge planning, medication reconciliation, and communication with other providers. Discharge Instructions Please refer to the electronic Patient Visit Report (Discharge Instructions) for additional information. Resident Tracking Resident Involvement: Resident Care Provided Care Provided: Adult [facility]
== END 2016-07-18 14:18 | disposition home or self-care (01) ==
LOC: ENRESERVTM → ENRESERVDT → C.EDB 17:05 → C.2T 19:06
PROVIDERS: ADMIT Hospitalist; ATTEND Family Medicine
DX: R07.9 Chest pain, unspecified (principal); I25.10 Atherosclerotic heart disease of native coronary artery without angina pectoris; J45.909 Unspecified asthma, uncomplicated; I10 Essential (primary) hypertension; E78.5 Hyperlipidemia, unspecified; I25.2 Old myocardial infarction; Z79.82 Long term (current) use of aspirin; Z87.891 Personal history of nicotine dependence; Z82.49 Family history of ischemic heart disease and other diseases of the circulatory system